=== PATIENT | female | born 1980 | race Caucasian/White ===

== ENCOUNTER 2021-07-29 08:22 | Emergency (ER) | payer OTHER ==
[2021-07-29 08:53] LABS: BASOPHILS % (AUTO) 0.5 %; EOSINOPHILS # (AUTO) 0.1 10^3/uL (0.0-0.7); HGB - HEMOGLOBIN 13.7 g/dL (12.0-16.0); LYMPHOCYTES # (AUTO) 1.7 10^3/uL (1.5-3.5); LYMPHOCYTES % (AUTO) 19.9 %; MEAN CORPUSCULAR HEMOGLOBIN 28.1 pg (27.0-31.0); MEAN CORPUSCULAR HGB CONC 31.9 g/dL (32.0-36.0); MEAN CORPUSCULAR VOLUME 88.3 fL (81.0-99.0); MEAN PLATELET VOLUME 11.2 fL (7.9-10.8); MONOCYTES # (AUTO) 0.5 10^3/uL (0.0-1.0); MONOCYTES % (AUTO) 5.2 %; NEUTROPHILS # (AUTO) 6.4 10^3/uL (1.5-6.6); NEUTROPHILS % (AUTO) 73.2 %; PLT - PLATELET COUNT 281 10^3/uL (130-450); RED BLOOD COUNT 4.87 10^6/uL (4.20-5.40); RED CELL DISTRIBUTION WIDTH 14.8 % (12.0-15.0); WHITE BLOOD COUNT 8.7 x10^3/uL (4.8-10.8)
[2021-07-29] MEDS ORDERED: SODIUM CHLORIDE 0.9% 1,000 ML IV STA (08:57)
[2021-07-29 08:59] LABS: BILIRUBIN,URINE NEGATIVE (NEGATIVE); GLUCOSE, URINE (UA) NEGATIVE (NEGATIVE); KETONES,URINE (UA) NEGATIVE (NEGATIVE); LEUKOCYTE ESTERASE, URINE NEGATIVE (NEGATIVE); NITRITE,URINE NEGATIVE (NEGATIVE); OCCULT BLOOD,URINE TRACE-INTA (NEGATIVE); PROTEIN,URINE TRACE mg/dL (NEGATIVE); UROBILINOGEN,URINE 0.2 (NORMAL) E.U./dL (NORMAL)
--- NOTE | 2021-07-29 09:00 | ED Physician Documentation ---
PD HPI ABD PAIN - Stated complaint Stated Complaint: ABD PX/NAUSEA - Chief complaint Chief Complaint: Abd Pain - History obtained from History obtained from: Patient - Additional information Additional information: 41-year-old woman with history of obesity and borderline hypertension, otherwise healthy presents with stomach upset starting last night with nausea and diarrhea progressing to more right lower quadrant pain worse with walking today. Not associated with fevers or chills. No history of abdominal or other surgeries. Last menses was approximately a week and a half ago and unremarkable for her. No current vaginal bleeding or discharge. No concern for STDs or . Review of Systems Ten Systems: 10 systems reviewed and negative Constitutional: denies: Fever, Chills Throat: reports: Reviewed and negative Cardiac: reports: Reviewed and negative Respiratory: reports: Reviewed and negative PD PAST MEDICAL HISTORY - Present Medications Home Medications: Ambulatory Orders Medication Instructions Recorded Confirmed No Known Home Medications 07/29/21 07/29/21 - Allergies Allergies/Adverse Reactions: Allergies Allergy/AdvReac Type Severity Reaction Status Date / Time No Known Drug Allergies Allergy Verified 07/29/21 08:31 PD ED PE NORMAL - Vitals Vital signs reviewed: Yes - General General: Alert and oriented X 3, No acute distress - HEENT HEENT: PERRL, EOMI - Neck Neck: Supple, no meningeal sign, No bony TTP - Cardiac Cardiac: RRR, No murmur - Respiratory Respiratory: No respiratory distress, Clear bilaterally - Abdomen Abdomen: Normal bowel sounds, Soft, Non tender, Other (No obvious tenderness, but exam may be limited by body habitus. Note BMI of 53.) - Back Back: No CVA TTP - Derm Derm: Normal color, Warm and dry - Extremities Extremities: No edema, No calf tenderness / cord - Neuro Neuro: Alert and oriented X 3, Normal speech Results - Vitals Vitals: Vital Signs - 24 hr 07/29/21 08:32 Temperature 36.8 C Heart Rate 74 Respiratory 16 Rate Blood Pressure 155/107 H O2 Saturation 96 Oxygen O2 Source Room air - Labs Labs: Laboratory Tests 07/29/21 07/29/21 07/29/21 08:41 08:45 08:45 WBC 8.7 RBC 4.87 Hgb 13.7 Hct 43.0 MCV 88.3 MCH 28.1 MCHC 31.9 L RDW 14.8 Plt Count 281 MPV 11.2 H Neut # (Auto) 6.4 Lymph # (Auto) 1.7 [place] # (Auto) 0.5 Eos # (Auto) 0.1 Baso # (Auto) 0.0 Absolute Nucleated RBC 0.00 Nucleated RBC % 0.0 Sodium 135 Potassium 3.5 Chloride 100 L Carbon Dioxide 25 Anion Gap 10.0 BUN 7 Creatinine 0.8 Estimated GFR (MDRD) 79 L Glucose 96 Calcium 9.1 Total Bilirubin 0.9 AST 31 ALT 28 Alkaline Phosphatase 71 Total Protein 8.2 Albumin 4.1 Globulin 4.1 Albumin/Globulin Ratio 1.0 Lipase 26 Urine Color YELLOW Urine Clarity HAZY Urine pH 6.0 Ur Specific [place] >=1.030 H Urine Protein TRACE Urine Glucose (UA) NEGATIVE Urine Ketones NEGATIVE Urine Occult Blood TRACE-INTA Urine Nitrite NEGATIVE Urine Bilirubin NEGATIVE Urine Urobilinogen 0.2 (NORMAL) Ur Leukocyte Esterase NEGATIVE Urine RBC 0-5 Urine WBC 6-10 H Ur Squamous Epith Cells MANY Squamous H Urine Bacteria Many H Urine Mucus Marked Strands Ur Microscopic Review INDICATED Urine Culture Comments NOT INDICATED Urine HCG, Qual NEGATIVE PD MEDICAL DECISION MAKING - ED course ED course: 41-year-old woman with what sounds like a viral gastroenteritis complicated by some right lower quadrant abdominal pain with a very benign exam although may be limited by body habitus. Work-up demonstrates basically unremarkable labs but a CT showing a concerning adnexal mass. Case was discussed by phone with gynecology, Dr. Pisano who will see her closely in follow-up and asked that we draw a CA-125 prior to discharge that she will follow up on. Departure - Departure Disposition: 01 Home, Self Care Clinical Impression: Vomiting Qualifiers: Vomiting type: unspecified Nausea presence: with nausea Qualified Code(s): R11.2 - Nausea with vomiting, unspecified Diarrhea Qualifiers: Diarrhea type: presumed infectious Qualified Code(s): R19.7 - Diarrhea, unspecified Condition: Good Record reviewed to determine appropriate education?: Yes Instructions: ED Abdominal Pain Female Non-Specific Abdominal Pain Follow-Up: [place] Pisano MD [Provider Admit Priv/Credential] - Comments: You are seen today for what sounds like a viral stomach illness, but given the right lower quadrant pain we wanted to make sure you did not have appendicitis and as such did a CT scan for this. The CT scan, as discussed showed a concerning adnexal mass which will need specific follow-up and I discussed her case with Dr. Pisano our on-call civil engineering designer. She has asked me to draw a CA- 125 level which is a cancer marker and she will follow up on this which will help her decide what the next step will be. You should call her office today or Sunday to arrange for an appointment and return anytime if worsening.
[2021-07-29 09:02] LABS: CLARITY,URINE HAZY (CLEAR); HCG UR QUAL NEGATIVE
[2021-07-29 09:07] LABS: ALBUMIN 4.1 g/dL (3.2-5.5); BILIRUBIN,TOTAL 0.9 mg/dL (0.2-1.0); CALCIUM 9.1 mg/dL (8.5-10.3); CREATININE 0.8 mg/dL (0.4-1.0); POTASSIUM 3.5 mmol/L (3.5-5.0); TOTAL PROTEIN 8.2 g/dL (6.7-8.2)
[2021-07-29] MEDS ORDERED: IOVERSOL 320 100 ML VIAL IVP ONE ×2 (09:09→09:51)
[2021-07-29 09:20] LABS: BACTERIA,URINE Many /HPF (None Seen); MUCUS,URINE Marked Strands; RBC,URINE 0-5 /HPF (0-5); SQUAMOUS EPITHELIAL CELL,UR MANY Squamous (<= Few)
--- NOTE | 2021-07-29 10:09 | CT Report ---
PROCEDURE: Abdomen/Pelvis W INDICATIONS: IV only, RLQ pain CONTRAST: IV CONTRAST: Optiray 320 ml: 100 PO CONTRAST: *NO PO CONTRAST TECHNIQUE: After the administration of intravenous contrast, 5 mm thick sections acquired from the diaphragms to the symphysis. 5 mm thick coronal and sagittal reformats were acquired. For radiation dose reducti on, the following was used: automated exposure control, adjustment of mA and/or kV according to javier ent size. COMPARISON: None. FINDINGS: Image quality: Excellent. ABDOMEN: Lung bases: Lung bases are clear. Heart size is normal. Solid organs: Liver and spleen are normal in size and enhancement. Diffuse fatty infiltration of the liver. Gallbladder is normal Biliary system is non dilated. Pancreas enhances normally. No adrena l nodules. Kidneys demonstrate normal size and enhancement, without hydronephrosis. Peritoneum and bowel: Bowel loops demonstrate normal wall thickness and caliber. No free fluid or a ir. The appendix is normal. Nodes and vessels: No retroperitoneal or mesenteric adenopathy by size criteria. Aorta and inferior vena cava are normal in size. Miscellaneous: No ventral hernias. PELVIS: Genitourinary: Bladder wall thickness is normal. 3.5 cm right adnexal cyst. 4.0 cm left adnexal cyst . There is a 12.6 x 10.6 x 13.2 cm cystic lesion in the mid pelvis which is superior to the uterus an d abuts the right adnexa. Miscellaneous: No inguinal hernias or adenopathy. Bones: No suspicious bony lesions. No vertebral body compression fractures. Spine degenerative disc disease and facet arthropathy are noted. IMPRESSION: 1. Appendix is normal. 2. 12.6 x 10.6 x 13.6 cm cyst in the mid pelvis. Cyst is contiguous with the right adnexa and may ref lect a right adnexal cystic neoplasm. Recommend gynecologic consultation and MRI of the pelvis for ad ditional characterization. 3. No free fluid or air. 4. No dilated loops of bowel. Reviewed by: Shamika Centeno MD, PhD on 07/29/2021 10:08 AM PST Approved by: Shamika Centeno MD, PhD on 07/29/2021 10:08 AM [facility] Station ID: [id number]
[2021-07-29 10:38] VITALS: BP 165/95
== END 2021-07-29 10:40 | disposition home or self-care (01) ==
LOC: ED 08:22
DX: R10.31 Right lower quadrant pain (principal); R11.2 Nausea with vomiting, unspecified; R19.7 Diarrhea, unspecified
CPT/HCPCS: 36415; 74177; 80053; 81001; 81025; 83690; 85025; 86304; 99284; Q9967; 81003; 87086

== ENCOUNTER 2021-09-03 12:42 | Outpatient (CLI) | payer OTHER ==
[2021-09-03 16:55] LABS: HCT - HEMATOCRIT 40.2 % (37.0-47.0); HGB - HEMOGLOBIN 12.8 g/dL (12.0-16.0); MEAN CORPUSCULAR HGB CONC 31.8 g/dL (32.0-36.0); MEAN PLATELET VOLUME 11.8 fL (7.9-10.8); RED BLOOD COUNT 4.57 10^6/uL (4.20-5.40); RED CELL DISTRIBUTION WIDTH 14.7 % (12.0-15.0); WHITE BLOOD COUNT 8.8 x10^3/uL (4.8-10.8)
[2021-09-03 17:13] LABS: % IRON SATURATION 16 % (20-50); CHOL/HDL RATIO 3.5 (<4.4); CHOLESTEROL 170 mg/dL; GLUCOSE,FASTING 86 mg/dL (70-100); HDL CHOLESTEROL 49 mg/dL; IRON 60 ug/dL (28-170); LDL CHOLESTEROL,CALCULATED 103 mg/dL; LDL/HDL RATIO 2.1 (<4.4); TOTAL IRON BINDING CAPACITY 364 ug/dL (250-450); TRANSFERRIN 260 mg/dL (192-382); TRIGLYCERIDES 89 mg/dL; VLDL CHOLESTEROL 18 mg/dL
[2021-09-03 17:23] LABS: THYROID STIMULATING HORMONE 1.44 uIU/mL (0.34-5.60)
[2021-09-03 17:29] LABS: FERRITIN 47.6 ng/mL (11.0-306.8)
[2021-09-03 21:49] LABS: ESTIMATED AVERAGE GLUCOSE 105 mg/dL (70-100); HEMOGLOBIN A1c% 5.3 % (4.27-6.07)
== END 2021-09-03 12:43 | disposition home or self-care (01) ==
LOC: LAB.N 12:42
PROVIDERS: ATTEND Obstetrics & Gynecology
DX: Z00.00 Encounter for general adult medical examination without abnormal findings (principal); Z13.29 Encounter for screening for other suspected endocrine disorder; Z13.1 Encounter for screening for diabetes mellitus; Z13.220 Encounter for screening for lipoid disorders; Z13.21 Encounter for screening for nutritional disorder
CPT/HCPCS: 36415; 80061; 82306; 82728; 82947; 83036; 83540; 83721; 84443; 84466; 85027

== ENCOUNTER 2021-11-02 13:36 | Outpatient (CLI) | payer OTHER ==
--- NOTE | 2021-11-04 07:53 | Mammography Report ---
BILATERAL DIGITAL SCREENING MAMMOGRAM 3D/2D: 11/02/2021 CLINICAL: Baseline exam Routine screening. No prior exams were available for comparison. The tissue of both breasts is heterogeneously dense. T his may lower the sensitivity of mammography. No significant masses, calcifications, or other findings are seen in either breast. IMPRESSION: NEGATIVE There is no mammographic evidence of malignancy. A 1 year screening mammogram is recommended. This exam was interpreted at Station ID: [id number]. NOTE: For mammograms, a report in lay terms will be sent to the patient. Approximately 15% of breast malignancies will not be visualized mammographically. In the management of a palpable breast mass, a negative mammogram must not discourage biopsy of a clinically suspicious lesion. Electronically Signed By: Nico Duque acr/penrad:11/02/2021 15:57:48 ACR BI-RADS Category 1: Negative 3341F PARENCHYMAL PATTERN: (D) - The breast(s) demonstrate(s) heterogeneously dense fibroglandular parradhay ma. BI-RADS CATEGORY: (1) - 1 RECOMMENDATION: (ANNUAL) - Recommend routine annual screening mammography. 20221103 1 year screening LATERALITY: (B)
== END 2021-11-02 13:37 | disposition home or self-care (01) ==
LOC: DI.N 13:36
PROVIDERS: ATTEND Obstetrics & Gynecology
DX: Z12.31 Encounter for screening mammogram for malignant neoplasm of breast (principal)

== ENCOUNTER 2021-11-22 16:55 | Outpatient (CLI) | payer OTHER | END 2021-11-22 16:56 | disposition home or self-care (01) | LOC: LAB.N 16:55 | PROVIDERS: ATTEND Obstetrics & Gynecology | DX: E55.9 Vitamin D deficiency, unspecified (principal) | CPT/HCPCS: 82306 ==